=== PATIENT | female | born 1995 | race Caucasian/White ===

== ENCOUNTER → 2016-09-13 | Outpatient (CLI) | payer OTHER | LOC: MOB LAB 13:14 | PROVIDERS: ATTEND Physician Assistant | DX: N39.0 Urinary tract infection, site not specified (principal) | CPT/HCPCS: 87088 ==

== ENCOUNTER → 2016-10-23 | Outpatient (CLI) | payer SELFPAY | LOC: MOB LAB 10:07 | PROVIDERS: ATTEND Family Medicine | DX: R30.0 Dysuria (principal); N94.10 Unspecified dyspareunia | CPT/HCPCS: 87480; 87491; 87510; 87591; 87660 ==